=== PATIENT | female | born 1985 | race Caucasian/White ===

== ENCOUNTER 2016-11-13 07:20 | Inpatient (IN) | payer OTHER ==
[~2016-11-13] VITALS: Ht 162.6 cm; Wt 88.9 kg
[2016-11-13] VITALS (23 sets, daily range): BP systolic 103–137; BP diastolic 58–82
[~2016-11-13 07:20] MED LIST: ENDOCET 5-3251 EACH PO; Motrin PO
[2016-11-13] MEDS ORDERED: PRENATAL TABLE1 EAC3 PO (07:51)
[2016-11-13] MEDS ORDERED: ZOLOFT50 MG PO (07:51)
[2016-11-13] MEDS ORDERED: ZYRTEC10 M3 PO (07:51)
[2016-11-13 09:10] LABS: EOSINOPHIL (%) 0.8 % (0-5); EOSINOPHIL COUNT 0.1 K/uL (0-0.3); HEMATOCRIT 35.5 % (36.0-46.0); IMMATURE GRANULOCYTE COUNT 0.1 K/uL; INSTRUMENT ABS NEUTROPHIL CT 5.5 K/uL; LYMPHOCYTE COUNT 1.4 K/uL (1.0-2.8); MCHC 32.7 G/DL (30.0-36.0); MCV 94.9 FL (83-99); MEAN PLAT.VOLUME 10.5 uM^3 (9.5-12.4); MONOCYTE COUNT 0.8 K/uL (0-0.8); NEUTROPHIL COUNT 5.5 K/uL (1.8-6.4); PLATELET COUNT 160 K/uL (156-360); RBC DIS.WIDTH-CV 13.2 % (11.8-14.6); RBC DIS.WIDTH-SD 46.3 % (39-53); RED BLOOD COUNT 3.74 M/uL (3.80-5.20); WHITE BLOOD COUNT 7.8 K/uL (4.1-10.2)
[2016-11-13] MEDS ORDERED: IBUPROFEN800 MG PO (21:43)
[2016-11-14 00:36] VITALS: BP 114/65
[2016-11-14 23:00] VITALS: BP 104/72
[2016-11-15 07:15] VITALS: BP 95/59
== END 2016-11-15 13:30 | disposition home or self-care (01) | DRG 775 ==
LOC: LDRP-OP 07:20 → 2WEST 07:23 → LDRP-OP 07:54 → 2WEST 21:22 → LDRP-OP 12-06 13:52
PROVIDERS: Advanced Practice Midwife
DX: O48.0 Post-term pregnancy (principal); O99.824 Streptococcus B carrier state complicating childbirth; O99.344 Other mental disorders complicating childbirth; F42.9 Obsessive-compulsive disorder, unspecified; F41.9 Anxiety disorder, unspecified; F32.9 Major depressive disorder, single episode, unspecified; Z3A.41 41 weeks gestation of pregnancy; Z37.0 Single live birth; Z87.11 Personal history of peptic ulcer disease; Z87.891 Personal history of nicotine dependence
CPT/HCPCS: 85025; C1755; J2540; J3010; J7120